=== PATIENT | male | born 2000 | race Caucasian/White ===

== ENCOUNTER 2023-11-14 17:39 | Emergency (ER) | payer SELFPAY ==
[~2023-11-14] VITALS: Ht 172.7 cm; Wt 68.0 kg
[2023-11-14 17:40] VITALS: BP_SYST 119; PULSE 81; RESP 18; TEMP 99.1; O2SAT 99
[2023-11-14 19:41] VITALS: BP_SYST 121; PULSE 78; RESP 18; TEMP 98.7; O2SAT 100
== END 2023-11-14 19:17 ==
LOC: SED 17:39
DX: Z00.00 Encounter for general adult medical examination without abnormal findings (principal)
CPT/HCPCS: 99283